=== PATIENT | female | born 1965 | race Two or more races ===

== ENCOUNTER 2019-03-23 07:07 | Outpatient (CLI) | payer OTHER | END 2019-03-23 15:06 | disposition home or self-care (01) | LOC: LAB 07:07 | DX: M62.81 Muscle weakness (generalized) (principal); R10.84 Generalized abdominal pain ==

== ENCOUNTER 2019-06-03 14:48 | Emergency (ER) | payer OTHER ==
[~2019-06-03] VITALS: Ht 172.7 cm; Wt 81.6 kg
== END 2019-06-03 19:58 | disposition home or self-care (01) ==
LOC: ER 14:48
DX: R00.2 Palpitations (principal); I10 Essential (primary) hypertension; F06.4 Anxiety disorder due to known physiological condition

== ENCOUNTER → 2019-12-26 11:12 | Outpatient (CLI) | payer OTHER | END | disposition home or self-care (01) | LOC: LAB 11:12 | DX: Z80.49 Family history of malignant neoplasm of other genital organs (principal) ==

== ENCOUNTER 2020-07-10 12:20 | Emergency (ER) | payer OTHER ==
[~2020-07-10] VITALS: Ht 172.7 cm; Wt 77.1 kg
[2020-07-10] MEDS ORDERED: INTESTINEX680 M1 PO (13:08)
[2020-07-10] MEDS ORDERED: AMOX-CLAV 875-1 EACH PO (13:08)
== END 2020-07-10 13:26 | disposition home or self-care (01) ==
LOC: ER 12:20
DX: S81.822A Laceration with foreign body, left lower leg, initial encounter (principal); W22.8XXA Striking against or struck by other objects, initial encounter; Y93.89 Activity, other specified; Y92.89 Other specified places as the place of occurrence of the external cause; Y99.8 Other external cause status

== ENCOUNTER → 2020-08-10 07:24 | Outpatient (CLI) | payer OTHER ==
[~2020-08-10 07:24] MED LIST: AMOX-CLAV 875-1 EACH PO; INTESTINEX680 M1 PO
== END | disposition home or self-care (01) ==
LOC: LAB 07:24
PROVIDERS: ATTEND Surgery
DX: R53.81 Other malaise (principal); R10.11 Right upper quadrant pain

== ENCOUNTER 2020-08-10 08:08 | Outpatient (CLI) | payer OTHER | END 2020-08-10 08:22 | disposition home or self-care (01) | LOC: MAMO-SONO 08:08 | PROVIDERS: ATTEND Surgery | DX: Z12.31 Encounter for screening mammogram for malignant neoplasm of breast (principal); N64.59 Other signs and symptoms in breast ==

== ENCOUNTER 2021-01-18 11:00 | Outpatient (CLI) | payer OTHER | END 2021-01-18 11:10 | disposition home or self-care (01) | LOC: LAB 11:00 | PROVIDERS: ATTEND Surgery | DX: R05 Cough (principal); R50.9 Fever, unspecified; R06.1 Stridor; Z03.818 Encounter for observation for suspected exposure to other biological agents ruled out; Z20.822 Contact with and (suspected) exposure to COVID-19; R53.81 Other malaise ==

== ENCOUNTER 2021-02-04 10:22 | Outpatient (CLI) | payer OTHER | END 2021-02-04 10:25 | disposition home or self-care (01) | LOC: LAB 10:22 | PROVIDERS: ATTEND Surgery | DX: R80.3 Bence Jones proteinuria (principal); E75.5 Other lipid storage disorders; N39.0 Urinary tract infection, site not specified ==

== ENCOUNTER 2021-11-21 11:56 | Outpatient (CLI) | payer OTHER | END 2021-11-21 12:04 | disposition home or self-care (01) | LOC: LAB 11:56 | PROVIDERS: ATTEND Surgery | DX: U07.1 COVID-19 (principal) ==

== ENCOUNTER 2022-08-27 09:13 | Outpatient (CLI) | payer OTHER | END 2022-08-27 09:14 | disposition home or self-care (01) | LOC: LAB 09:13 | PROVIDERS: ATTEND Surgery | DX: K82.4 Cholesterolosis of gallbladder (principal); R10.9 Unspecified abdominal pain; R53.81 Other malaise ==

== ENCOUNTER 2022-08-27 09:52 | Outpatient (CLI) | payer OTHER | END 2022-08-27 09:56 | disposition home or self-care (01) | LOC: RAD 09:52 | PROVIDERS: ATTEND Surgery | DX: R10.9 Unspecified abdominal pain (principal) ==